=== PATIENT | male | born 1945 | race Caucasian/White ===

== ENCOUNTER → 2017-11-05 08:10 | Outpatient (CLI) | payer BC, SELFPAY ==
[2017-11-05 10:18] LABS: Hematocrit 46.1 % (40-54); Mean Corp Hgb Conc 34.7 g/gl (32-36); Mean Corpuscular Hgb 31.4 pg (27.0-32.0); Mean Corpuscular Volume 90.6 fL (80-94); Mean Platelet Vol. 10.8 fl (6.2-12.0); Platelet Count 236 K/mm3 (150-450); RBC Distribution Width CV 12.2 % (11.6-14.6); RBC Distribution Width SD 39.8 fl (35.1-43.9); Red Blood Count 5.09 M/mm3 (4.6-6.2); White Blood Count 6.1 K/mm3 (4.4-11.0)
[2017-11-05 10:20] LABS: Scan Indicated on CBC? Y/N NO
[2017-11-05 10:34] LABS: Anion Gap 5 (5-15); BUN 23 mg/dL (7-18); BUN/Creat Ratio 17.3 RATIO (10-20); Calcium,Total 8.9 mg/dL (8.5-10.1); Chloride 106 mmol/L (98-107); Cholesterol 188 mg/dL (200); Creatinine, Serum 1.33 mg/dL (0.70-1.30); EST Glomerular Filtration Rate 56 mL/min (>60); Est Glom Filt Rate - Afr Amer 68 mL/min (>60); Glucose 82 mg/dL (74-106); High Density Lipoprotein 51 mg/dL; PSA,Total- Diagnostic 0.83 ng/mL (0.0-4.0); Sodium Level 140 mmol/L (136-145); Triglycerides 140 mg/dL; Very Low Density Lipoprotein 28 mg/dL (5-40)
== END ==
PROVIDERS: Family Provider Family Medicine; PCP Family Medicine; Visit Provider Family Medicine
DX: I10 Essential (primary) hypertension (principal); Z12.5 Encounter for screening for malignant neoplasm of prostate; E78.5 Hyperlipidemia, unspecified
CPT/HCPCS: 36415; 80048; 80061; 84153; 85027

== ENCOUNTER → 2018-11-20 08:21 | Outpatient (CLI) | payer BC, SELFPAY ==
[2016-03-23 00:33] VITALS: BMI 24.1
[2018-11-20 10:12] LABS: Absolute Lymphocyte Count 1.83 X10^3/ul (0.83-4.51); Absolute Neutrophil Count 2.9 X10^3/uL (2.0-7.7); Basophil# 0.04 X10^3/uL; Basophil% 0.7 % (0-1); Eosinophil# 0.41 X10^3/uL; Eosinophils% 6.9 % (0-5); Hemoglobin 15.4 g/dl (13.0-16.5); Lymphocyte # 1.83 X10^3/ul (4.0); Lymphocyte % 30.7 % (19-41); Mean Corp Hgb Conc 34.2 g/gl (32-36); Mean Corpuscular Hgb 30.9 pg (27.0-32.0); Mean Corpuscular Volume 90.2 fL (80-94); Mean Platelet Vol. 10.6 fl (6.2-12.0); Monocyte% 13.4 % (0-10); Neutrophil # 2.88 X10^3/uL (2.7-7.7); Neutrophil % 48.1 % (47-70); Platelet Count 229 K/mm3 (150-450); RBC Distribution Width CV 12.1 % (11.6-14.6); RBC Distribution Width SD 39.4 fl (35.1-43.9); Red Blood Count 4.99 M/mm3 (4.6-6.2)
[2018-11-20 10:14] LABS: POSITIVE COUNT NO; POSITIVE DIFFERENTIAL NO; POSITIVE MORPHOLOGY NO
[2018-11-20 10:38] LABS: Anion Gap 10 (5-15); BUN 26 mg/dL (7-18); BUN/Creat Ratio 20.8 RATIO (10-20); Calcium,Total 9.3 mg/dL (8.5-10.1); Chloride 105 mmol/L (98-107); Cholesterol 187 mg/dL (200); Creatinine, Serum 1.25 mg/dL (0.70-1.30); EST Glomerular Filtration Rate 60 mL/min (>60); Est Glom Filt Rate - Afr Amer 73 mL/min (>60); Glucose 86 mg/dL (74-106); High Density Lipoprotein 54 mg/dL; PSA,Total - Annual Screen 0.74 ng/mL (0.00-4.00); Potassium 4.2 mmol/L (3.5-5.1); Sodium Level 141 mmol/L (136-145); Triglycerides 196 mg/dL; Very Low Density Lipoprotein 39 mg/dL (5-40)
[2018-11-21 11:37] LABS: Carcinoembryonic Antigen 1.7 ng/mL (0.0-4.7)
== END ==
PROVIDERS: Family Provider Family Medicine; PCP Family Medicine; Referring Provider Family Medicine; Visit Provider Family Medicine
DX: E78.5 Hyperlipidemia, unspecified (principal); R20.2 Paresthesia of skin; C20 Malignant neoplasm of rectum; Z12.5 Encounter for screening for malignant neoplasm of prostate
CPT/HCPCS: 36415; 80048; 80061; 82378; 84153; 85025; G0103

== ENCOUNTER → 2018-11-26 09:52 | Outpatient (CLI) | payer BC, SELFPAY ==
--- NOTE | 2018-11-26 09:54 | CDU_ITS ---
Reason For Study: Arm paresthesia Rt. Velocities/BP Lt. Velocities/BP Prox CCA 98.2/17.3 cm/sec. Prox CCA 94.9/17.6 cm/sec. Mid CCA 93/17.3 cm/sec. Mid CCA 81.4/16.3 cm/sec. Dist CCA 65.6/14.7 cm/sec. Dist CCA 65.5/16.3 cm/sec. Prox ICA 50.9/14.6 cm/sec. Prox ICA 69.1/18.8 cm/sec. Mid ICA 59.7/17.9 cm/sec. Mid ICA 109.7/36 cm/sec. Dist ICA 104.8/34.8 cm/sec. Dist ICA 96.2/26.2 cm/sec. Rt. ICA/CCA = 1.1. Lt. ICA/CCA = 1.3. Prox ECA 71.7/10.2 cm/sec. Prox ECA 71.6/7.7 cm/sec. Rt. Vert. 52/16.8 cm/sec. Lt. Vert. 45.6/10.7 cm/sec. Right Extracranial There is homogeneous, smooth atherosclerotic plaque noted in the right common carotid artery. There is heterogeneous, irregular atherosclerotic plaque noted in the right internal carotid artery. There is intimal thickening but no significant atherosclerotic plaque noted in the right external carotid artery. Antegrade flow is noted in the right vertebral artery. Left Extracranial There is homogeneous, smooth atherosclerotic plaque noted in the left common carotid artery. There is homogeneous, smooth atherosclerotic plaque noted in the left internal carotid artery. There is homogeneous, smooth atherosclerotic plaque noted in the left external carotid artery. Antegrade flow is noted in the left vertebral artery. Procedure Carotid Duplex 61863. Exam performed in department. Interpretation Summary Mild (<50%) stenosis right extracranial internal carotid. Mild (<50%) stenosis left extracranial internal carotid. Flow within the vertebral arteries is antegrade bilaterally. Ordering Physician: Ron Choi Referring Physician: Ron Choi Performed By: Kim Krishna RVT
== END ==
PROVIDERS: Family Provider Family Medicine; PCP Family Medicine; Referring Provider Family Medicine; Visit Provider Family Medicine
DX: R20.2 Paresthesia of skin (principal)
CPT/HCPCS: 93880

== ENCOUNTER → 2018-12-29 07:15 | Outpatient (CLI) | payer BC, SELFPAY ==
--- NOTE | 2018-12-29 07:32 | MRI_ITS ---
STUDY: MRI BRAIN WITH AND WITHOUT CONTRAST REASON FOR EXAM: Male, 73 years old. Right arm paresthesia TECHNIQUE: Standardized multiplanar fat and water weighted pulse sequences were obtained. 15 IV Dotarem was administered for the contrast portion of the examination. COMPARISON: None. FINDINGS: Normal size of the ventricles and extra-axial spaces for the patient's age. Normal white matter tracts of the supratentorial brain. There is no evidence for recent intracranial ischemia or other cause of cytotoxic edema on diffusion weighted imaging (DWI). Normal T2* images of the brain without demonstrated susceptibility artifact. There is no demonstrated hemosiderin stain. Normal bilateral basal ganglia. Normal thalami. There is no extra-axial fluid accumulation. Normal flow voids within the major intracranial circulation suggesting patency by spin echo criteria. Normal venous enhancement. There is no enhancing intra-axial or extra-axial abnormality. Normal sella turcica, pituitary gland, infundibular stalk, optic chiasm and hypothalamus. Normal tectal plate and pineal gland. Normal midbrain, katty and medulla. Normal cerebellum. Normal basal cisterns. Normal bilateral temporal bones. Normal bilateral internal auditory canals. No demonstrated orbital abnormality, within the constraints of a routine brain study. Normal visualized paranasal sinuses. Normal calvarium and skull base. Normal visualized soft tissue structures. Normal visualized upper cervical spine. MRI/Brain W/WO Contrast IMPRESSION: Normal unenhanced and enhanced MRI of the brain. Electronically Signed: Sharee Lalitha, at 11:47 EDT Tel , Service support ,
== END ==
PROVIDERS: Family Provider Family Medicine; PCP Family Medicine; Referring Provider Family Medicine; Visit Provider Family Medicine
DX: R20.2 Paresthesia of skin (principal)
CPT/HCPCS: 70553; A9575

== ENCOUNTER → 2019-10-27 10:23 | Outpatient (CLI) | payer BC, SELFPAY ==
[2016-03-23 00:33] VITALS: BMI 24.1
[2019-10-27 12:51] LABS: ALB/GLOB Ratio 1.1 RATIO (0.9-2.4); AST(SGOT) 28 U/L (15-37); Alanine Aminotransfer ALT/SGPT 40 U/L (16-61); Albumin, Serum 4.2 g/dL (3.2-5.0); Alkaline Phosphatase 65 U/L (45-117); Anion Gap 6 (5-15); BUN 25 mg/dL (7-18); Calcium,Total 9.5 mg/dL (8.5-10.1); Chloride 104 mmol/L (98-107); Cholesterol 221 mg/dL (200); Creatinine, Serum 1.39 mg/dL (0.70-1.30); EST Glomerular Filtration Rate 53 mL/min (>60); Est Glom Filt Rate - Afr Amer 64 mL/min (>60); Globulin 3.9 g/dL (2.2-4.2); Glucose 92 mg/dL (74-106); High Density Lipoprotein 54 mg/dL; Protein, Total 8.1 g/dL (6.4-8.2); Sodium Level 138 mmol/L (136-145); Triglycerides 199 mg/dL; Uric Acid 8.9 mg/dL (3.5-7.2); Very Low Density Lipoprotein 40 mg/dL (5-40)
[2019-10-28 09:20] LABS: Carcinoembryonic Antigen 1.4 ng/mL (0.0-4.7)
== END ==
PROVIDERS: PCP Family Medicine; Referring Provider Family Medicine; Visit Provider Family Medicine
DX: C20 Malignant neoplasm of rectum (principal); I10 Essential (primary) hypertension; M25.50 Pain in unspecified joint
CPT/HCPCS: 36415; 80053; 80061; 82378; 84550

== ENCOUNTER → 2020-05-02 08:25 | Outpatient (CLI) | payer BC, SELFPAY ==
[2016-03-23 00:33] VITALS: BMI 24.1
[2020-05-02 10:38] LABS: Anion Gap 4 (5-15); BUN 24 mg/dL (7-18); BUN/Creat Ratio 17.8 RATIO (10-20); Calcium,Total 9.5 mg/dL (8.5-10.1); Chloride 105 mmol/L (98-107); Cholesterol 185 mg/dL (200); Creatinine, Serum 1.35 mg/dL (0.70-1.30); EST Glomerular Filtration Rate 55 mL/min (>60); Est Glom Filt Rate - Afr Amer 66 mL/min (>60); Glucose 87 mg/dL (74-106); High Density Lipoprotein 47 mg/dL; Potassium 4.1 mmol/L (3.5-5.1); Sodium Level 139 mmol/L (136-145); Triglycerides 249 mg/dL; Very Low Density Lipoprotein 50 mg/dL (5-40)
== END ==
PROVIDERS: PCP Family Medicine; Referring Provider Family Medicine; Visit Provider Family Medicine
DX: I10 Essential (primary) hypertension (principal)
CPT/HCPCS: 36415; 80048; 80061

== ENCOUNTER → 2020-10-26 09:49 | Outpatient (CLI) | payer MEDICARE, OTHER, SELFPAY ==
[2016-03-23 00:33] VITALS: BMI 24.1
[2020-10-26 12:34] LABS: Anion Gap 5 (5-15); BUN 29 mg/dL (7-18); BUN/Creat Ratio 21.5 RATIO (10-20); Calcium,Total 9.5 mg/dL (8.5-10.1); Chloride 105 mmol/L (98-107); Cholesterol 202 mg/dL (200); Creatinine, Serum 1.35 mg/dL (0.70-1.30); EST Glomerular Filtration Rate 55 mL/min (>60); Est Glom Filt Rate - Afr Amer 66 mL/min (>60); Glucose 101 mg/dL (74-106); High Density Lipoprotein 51 mg/dL; Potassium 4.1 mmol/L (3.5-5.1); Sodium Level 140 mmol/L (136-145); Triglycerides 327 mg/dL; Very Low Density Lipoprotein 65 mg/dL (5-40)
== END ==
PROVIDERS: PCP Family Medicine; Referring Provider Family Medicine; Visit Provider Family Medicine
DX: I10 Essential (primary) hypertension (principal)
CPT/HCPCS: 36415; 80048; 80061

== ENCOUNTER → 2020-10-30 13:54 | Outpatient (CLI) | payer MEDICARE, OTHER, SELFPAY ==
--- NOTE | 2020-10-30 13:56 | ECHOD_ITS ---
Reason For Study: Murmur Procedure This was a 2D Doppler, Color Flow transthoracic echocardiogram. Exam performed in department. Left Ventricle Normal LV size. Left ventricular systolic function is normal. The estimated ejection fraction is 60 %. Stage 1 diastolic dysfunction. No regional wall motion abnormalities noted. Right Ventricle Normal RV size. Normal systolic function. Atria Normal left atrium. Normal right atrium. Patent foramen ovale. Tricuspid Valve Normal tricuspid valve. Mild tricuspid valve insufficiency. Pulmonary artery systolic pressure is 26 mmHg. Aortic Valve Trisinus/trileaflet aortic valve. Mild focal aortic valve calcification. Peak aortic valve gradient 24 mmHg. Mean aortic valve gradient 14 mmHg. Mild aortic stenosis. Pulmonic Valve Normal pulmonic valve. Great Vessels Normal aortic root. The pulmonary artery is normal size. Pericardium/Pleural No pericardial effusion. Medication Performed a rapid injection of agitated mix of 9 cc saline and 1cc air to assess for atrial septal defect. MMode/2D Measurements & Calculations LVIDd: 4.9 cm IVSd: 1.1 cm LVOT diam: 2.1 cm LVIDs: 3.4 cm LVPWd: 1.0 cm LVOT area: 3.4 cm2 RVDd: 3.3 cm FS: 30.8 % Ao root diam: 3.2 cm LAV(MOD-bp): 37.2 ml LVAd ap4: 27.3 cm2 LAV(MOD-bp) Indexed: 18.5 ml/m2 LVLd ap4: 7.9 cm LAV(MOD-sp2): 44.7 ml EDV(MOD-sp4): 77.3 ml LAV(MOD-sp4): 29.7 ml EDV(sp4-el): 80.2 ml LVAs ap4: 15.4 cm2 LVLs ap4: 6.6 cm ESV(MOD-sp4): 30.1 ml ESV(sp4-el): 30.5 ml EF(MOD-sp4): 61.0 % EF(sp4-el): 61.9 % SV(MOD-sp4): 47.2 ml SV(sp4-el): 49.7 ml LA A4 area: 13.8 cm2 LA dimension(2D): 3.3 cm RA A4 area: 17.2 cm2 Doppler Measurements & Calculations MV E max shree: 45.3 cm/sec Lat Peak E' Shree: 7.8 cm/sec Med Peak E' Shree: 6.7 cm/sec MV A max shree: 88.3 cm/sec E/E' lat: 5.8 E/E' med: 6.7 MV E/A: 0.51 Ao V2 max: 245.9 cm/sec LV V1 max: 117.0 cm/sec SV(LVOT): 74.7 ml Ao max P.2 mmHg LV V1 max P.5 mmHg Ao V2 mean: 176.5 cm/sec LV V1 mean P.8 mmHg Ao mean P.7 mmHg LV V1 mean: 79.2 cm/sec Ao V2 VTI: 48.4 cm LV V1 VTI: 22.2 cm MARGARITA(I,D): 1.5 cm2 MARGARITA(V,D): 1.6 cm2 PA V2 max: 122.3 cm/sec TR max shree: 239.3 cm/sec TR max P.9 mmHg ECHO/Echo Complete Interpretation Summary Normal LV size. Left ventricular systolic function is normal. The estimated ejection fraction is 60 %. Stage 1 diastolic dysfunction. Patent foramen ovale. Ordering Physician: Carmine Thomas Referring Physician: Carmine Thomas Performed By: Tata Alegre, DOMONIQUE, RVT
== END ==
PROVIDERS: PCP Family Medicine; Referring Provider Family Medicine; Visit Provider Family Medicine
DX: R01.1 Cardiac murmur, unspecified (principal)
CPT/HCPCS: 93306; A4216

== ENCOUNTER → 2021-04-24 10:19 | Outpatient (CLI) | payer MEDICARE, OTHER, SELFPAY ==
[2021-04-24 13:28] LABS: Anion Gap 6 (5-15); BUN 25 mg/dL (7-18); BUN/Creat Ratio 18.9 RATIO (10-20); Calcium,Total 9.7 mg/dL (8.5-10.1); Chloride 103 mmol/L (98-107); Cholesterol 195 mg/dL (200); Creatinine, Serum 1.32 mg/dL (0.70-1.30); EST Glomerular Filtration Rate 56 mL/min (>60); Est Glom Filt Rate - Afr Amer 68 mL/min (>60); Glucose 94 mg/dL (74-106); High Density Lipoprotein 48 mg/dL; PSA,Total - Annual Screen 0.91 ng/mL (0.00-4.00); Potassium 4.4 mmol/L (3.5-5.1); Sodium Level 137 mmol/L (136-145); Triglycerides 214 mg/dL; Very Low Density Lipoprotein 43 mg/dL (5-40)
[2021-04-25 10:02] LABS: Carcinoembryonic Antigen 1.7 ng/mL (0.0-4.7)
== END ==
PROVIDERS: PCP Family Medicine; Referring Provider Family Medicine; Visit Provider Family Medicine
DX: E78.5 Hyperlipidemia, unspecified (principal); Z12.5 Encounter for screening for malignant neoplasm of prostate; I10 Essential (primary) hypertension; C20 Malignant neoplasm of rectum
CPT/HCPCS: 36415; 80048; 80061; 82378; 84153; G0103

== ENCOUNTER → 2022-10-17 | Outpatient (CLI) | payer MEDICARE, OTHER, SELFPAY ==
[2022-10-17 10:52] LABS: ALB/GLOB Ratio 1.2 RATIO (0.9-2.4); AST(SGOT) 22 U/L (15-37); Alanine Aminotransfer ALT/SGPT 31 U/L (16-61); Albumin, Serum 3.7 g/dL (3.2-5.0); Alkaline Phosphatase 85 U/L (45-117); Anion Gap 5 (5-15); BUN 23 mg/dL (7-18); BUN/Creat Ratio 16.3 RATIO (10-20); Calcium,Total 9.4 mg/dL (8.5-10.1); Chloride 104 mmol/L (98-107); Cholesterol 204 mg/dL (200); Creatinine, Serum 1.41 mg/dL (0.70-1.30); EST Glomerular Filtration Rate 52 mL/min (>60); Est Glom Filt Rate - Afr Amer 63 mL/min (>60); Globulin 3.1 g/dL (2.2-4.2); Glucose 92 mg/dL (74-106); High Density Lipoprotein 51 mg/dL; Potassium 4.5 mmol/L (3.5-5.1); Protein, Total 6.8 g/dL (6.4-8.2); Sodium Level 137 mmol/L (136-145); Triglycerides 341 mg/dL; Very Low Density Lipoprotein 68 mg/dL (5-40)
== END | disposition home or self-care (01) ==
LOC: MFPLAB 09:29
PROVIDERS: PCP Family Medicine; Visit Provider Family Medicine
DX: I10 Essential (primary) hypertension (principal); E78.5 Hyperlipidemia, unspecified; Z12.5 Encounter for screening for malignant neoplasm of prostate
CPT/HCPCS: 36415; 80053; 80061; 84153; G0103

== ENCOUNTER → 2023-04-24 | Outpatient (CLI) | payer MEDICARE, OTHER, SELFPAY ==
[2023-04-24 18:29] LABS: ALB/GLOB Ratio 1.1 RATIO (0.9-2.4); AST(SGOT) 21 U/L (15-37); Alanine Aminotransfer ALT/SGPT 29 U/L (16-61); Albumin, Serum 3.7 g/dL (3.2-5.0); Alkaline Phosphatase 75 U/L (45-117); Anion Gap 8 (5-15); BUN 31 mg/dL (7-18); BUN/Creat Ratio 22.8 RATIO (10-20); Calcium,Total 9.4 mg/dL (8.5-10.1); Chloride 107 mmol/L (98-107); Cholesterol 219 mg/dL (200); Creatinine, Serum 1.36 mg/dL (0.70-1.30); EST Glomerular Filtration Rate 54 mL/min (>60); Est Glom Filt Rate - Afr Amer 65 mL/min (>60); Globulin 3.4 g/dL (2.2-4.2); Glucose 95 mg/dL (74-106); High Density Lipoprotein 50 mg/dL; Protein, Total 7.1 g/dL (6.4-8.2); Sodium Level 141 mmol/L (136-145); Triglycerides 445 mg/dL
== END | disposition home or self-care (01) ==
LOC: MFPLAB 14:06
PROVIDERS: PCP Family Medicine; Visit Provider Family Medicine
DX: I10 Essential (primary) hypertension (principal)
CPT/HCPCS: 36415; 80053; 80061

== ENCOUNTER → 2023-10-23 | Outpatient (CLI) | payer MEDICARE, OTHER, SELFPAY ==
[2023-10-23 10:47] LABS: ALB/GLOB Ratio 1.1 RATIO (0.9-2.4); AST(SGOT) 21 U/L (15-37); Alanine Aminotransfer ALT/SGPT 26 U/L (16-61); Albumin, Serum 3.7 g/dL (3.2-5.0); Alkaline Phosphatase 68 U/L (45-117); Anion Gap 3 (5-15); BUN 26 mg/dL (7-18); BUN/Creat Ratio 19.7 RATIO (10-20); Chloride 108 mmol/L (98-107); Cholesterol 201 mg/dL (200); Creatinine, Serum 1.32 mg/dL (0.70-1.30); EST Glomerular Filtration Rate 56 mL/min (>60); Est Glom Filt Rate - Afr Amer 68 mL/min (>60); Globulin 3.4 g/dL (2.2-4.2); Glucose 98 mg/dL (74-106); High Density Lipoprotein 52 mg/dL; Potassium 4.3 mmol/L (3.5-5.1); Protein, Total 7.1 g/dL (6.4-8.2); Sodium Level 139 mmol/L (136-145); Triglycerides 246 mg/dL; Uric Acid 5.1 mg/dL (3.5-7.2); Very Low Density Lipoprotein 49 mg/dL (5-40)
== END | disposition home or self-care (01) ==
LOC: MFPLAB 09:16
PROVIDERS: PCP Family Medicine; Visit Provider Family Medicine
DX: M10.9 Gout, unspecified (principal); E78.5 Hyperlipidemia, unspecified
CPT/HCPCS: 36415; 80053; 80061; 84550

== ENCOUNTER → 2023-12-02 | Outpatient (CLI) | payer MEDICARE, OTHER, SELFPAY ==
--- NOTE | 2023-12-02 09:51 | ECHOD_ITS ---
Reason For Study: MURMUR Procedure This was a 2D Doppler, Color Flow transthoracic echocardiogram. Exam performed in department. Left Ventricle Normal LV size. Left ventricular systolic function is normal. The left ventricular ejection fraction is 60 %. Stage 1 diastolic dysfunction. No regional wall motion abnormalities noted. Right Ventricle Normal RV size. Normal systolic function. Atria Normal left atrium. Normal right atrium. Hypermobile atrial septum. Mitral Valve Normal mitral valve. Tricuspid Valve Normal tricuspid valve. Aortic Valve Trisinus/trileaflet aortic valve. Moderate focal aortic valve thickening. Mild aortic stenosis. Peak aortic valve gradient 25 mmHg. Mean aortic valve gradient 15 mmHg. Mild (1+) aortic valve insufficiency. Pulmonic Valve Normal pulmonic valve. Great Vessels Normal aortic root. The pulmonary artery is normal size. Normal inferior vena cava. Pericardium/Pleural No pericardial effusion. MMode/2D Measurements & Calculations LVIDd: 4.6 cm IVSd: 1.1 cm LVOT diam: 2.0 cm LVIDs: 3.0 cm LVPWd: 1.1 cm LVOT area: 3.2 cm2 RVDd: 3.9 cm FS: 35.1 % Ao root diam: 3.1 cm LAV(MOD-bp): 54.6 ml LVAd ap4: 30.9 cm2 LAV(MOD-bp) Indexed: 27.4 ml/m2 LVLd ap4: 8.2 cm LAV(MOD-sp2): 56.4 ml EDV(MOD-sp4): 94.3 ml LAV(MOD-sp4): 50.2 ml EDV(sp4-el): 98.8 ml LVAs ap4: 17.7 cm2 LVLs ap4: 6.7 cm ESV(MOD-sp4): 39.1 ml ESV(sp4-el): 40.0 ml EF(MOD-sp4): 58.6 % EF(sp4-el): 59.5 % LVAd ap2: 28.8 cm2 SV(MOD-sp4): 55.3 ml SV(MOD-sp2): 52.5 ml LVLd ap2: 8.1 cm EDV(MOD-sp2): 82.6 ml EDV(sp2-el): 86.9 ml LVAs ap2: 15.8 cm2 LVLs ap2: 6.9 cm ESV(MOD-sp2): 30.1 ml ESV(sp2-el): 30.9 ml EF(MOD-sp2): 63.6 % SV(sp4-el): 58.8 ml LA dimension(2D): 3.6 cm LA A4 area: 19.2 cm2 RA A4 area: 22.8 cm2 TAPSE: 2.2 cm Time Measurements MV dec time: 0.31 sec Doppler Measurements & Calculations MV E max shree: 55.3 cm/sec Lat Peak E' Shree: 9.0 cm/sec Med Peak E' Shree: 8.0 cm/sec MV A max shree: 90.9 cm/sec E/E' lat: 6.2 E/E' med: 7.0 MV E/A: 0.61 Ao V2 max: 249.5 cm/sec AI max shree: 342.4 cm/sec MV dec slope: 178.3 cm/sec2 Ao max P.0 mmHg AI max P.9 mmHg Ao V2 mean: 180.2 cm/sec Ao mean P.7 mmHg AI dec slope: 142.0 cm/sec2 Ao V2 VTI: 53.4 cm AI P1/2t: 706.1 msec AV (velocity ratio): 0.46 MARGARITA(I,D): 1.5 cm2 MARGARITA(V,D): 1.5 cm2 LV V1 max: 114.3 cm/sec SV(LVOT): 79.4 ml PA V2 max: 137.2 cm/sec LV V1 max P.2 mmHg PA max PG (full): 4.8 mmHg LV V1 mean P.0 mmHg LV V1 mean: 82.4 cm/sec LV V1 VTI: 24.5 cm PI end-d shree: 84.1 cm/sec ECHO/Echo Complete Interpretation Summary Hypermobile atrial septum. Normal LV size. Left ventricular systolic function is normal. The left ventricular ejection fraction is 60 %. Mean aortic valve gradient 15 mmHg. Mild (1+) aortic valve insufficiency. Stage 1 diastolic dysfunction. The global longitudinal strain is normal. The global longitudinal strain = -20 % (normal). Ordering Physician: Carmine Thomas Referring Physician: Carmine Thomas Performed By: Xochilt rCaig RDCS
== END | disposition home or self-care (01) ==
LOC: CVS 09:48
PROVIDERS: PCP Family Medicine; Referring Provider Family Medicine; Visit Provider Family Medicine
DX: R01.1 Cardiac murmur, unspecified (principal)
CPT/HCPCS: 93306

== ENCOUNTER → 2024-04-19 | Outpatient (CLI) | payer MEDICARE, OTHER, SELFPAY ==
[2024-04-19 10:32] LABS: ALB/GLOB Ratio 1.1 RATIO (0.9-2.4); AST(SGOT) 14 U/L (15-37); Alanine Aminotransfer ALT/SGPT 24 U/L (16-61); Albumin, Serum 3.7 g/dL (3.2-5.0); Alkaline Phosphatase 78 U/L (45-117); Anion Gap 5 (5-15); BUN 27 mg/dL (7-18); BUN/Creat Ratio 20.9 RATIO (10-20); Calcium,Total 9.7 mg/dL (8.5-10.1); Chloride 108 mmol/L (98-107); Cholesterol 197 mg/dL (200); Creatinine, Serum 1.29 mg/dL (0.70-1.30); EST Glomerular Filtration Rate 57 mL/min (>60); Est Glom Filt Rate - Afr Amer 69 mL/min (>60); Globulin 3.5 g/dL (2.2-4.2); Glucose 94 mg/dL (74-106); High Density Lipoprotein 56 mg/dL; PSA,Total - Annual Screen 1.28 ng/mL (0.00-4.00); Potassium 4.3 mmol/L (3.5-5.1); Protein, Total 7.2 g/dL (6.4-8.2); Sodium Level 139 mmol/L (136-145); Triglycerides 198 mg/dL; Very Low Density Lipoprotein 40 mg/dL (5-40)
== END | disposition home or self-care (01) ==
LOC: MFPLAB 09:13
PROVIDERS: PCP Family Medicine; Visit Provider Family Medicine
DX: Z12.5 Encounter for screening for malignant neoplasm of prostate (principal); I10 Essential (primary) hypertension
CPT/HCPCS: 36415; 80053; 80061; 84153; G0103

== ENCOUNTER → 2024-10-20 | Outpatient (CLI) | payer MEDICARE, OTHER, SELFPAY ==
[2024-10-20 11:15] LABS: ALB/GLOB Ratio 1.6 RATIO (0.9-2.4); AST(SGOT) 24 U/L (<=37); Alanine Aminotransfer ALT/SGPT 17 U/L (<=46); Albumin, Serum 4.4 g/dL (3.4-4.8); Alkaline Phosphatase 68 U/L (40-129); Anion Gap 12 (5-15); BUN 32 mg/dL (4-19); BUN/Creat Ratio 22.7 RATIO (10-20); Calcium,Total 10.2 mg/dL (7.6-11.0); Carbon Dioxide 22.8 mmol/L (21.0-32.0); Chloride 103 mmol/L (98-108); Cholesterol 205 mg/dL (<=200); Creatinine, Serum 1.39 mg/dL (0.70-1.20); EST Glomerular Filtration Rate 52 (>60); Globulin 2.7 g/dL (2.2-4.2); Glucose 90 mg/dL (70-99); High Density Lipoprotein 59 mg/dL; Low Density Lipoprotein Calc. 105 mg/dL; Potassium 4.4 mmol/L (3.3-5.1); Protein, Total 7.1 g/dL (5.9-8.4); Sodium Level 138 mmol/L (133-145); Total Bilirubin 0.71 mg/dL (0.00-1.30); Triglycerides 208 mg/dL; Very Low Density Lipoprotein 42 mg/dL (5-40); cholesterol:hdl ratio screen 3.49
== END | disposition home or self-care (01) ==
LOC: MFPLAB 08:47
PROVIDERS: PCP Family Medicine; Referring Provider Family Medicine; Visit Provider Family Medicine
DX: I10 Essential (primary) hypertension (principal); E78.5 Hyperlipidemia, unspecified
CPT/HCPCS: 36415; 80053; 80061

== ENCOUNTER → 2025-04-27 | Outpatient (CLI) | payer MEDICARE, OTHER, SELFPAY ==
--- OUTSIDE RECORDS SUMMARY | 2025-04-27 08:48 | XMS RPT_ITS | CCD ---
Author Organization [facility] Inform ion [facility] Care Team Providers Care Instrumentation Technician Name Role Phone ANOTNIO ESCALANTE Attending Unavailable Ron Choi Referring Unavailable Ron Choi Primary Care Unavailable Antonio Escalante Unavailable Unavailable Vince WHATLEY, Carmine Joya Primary Care Provider [phone] Vince WHATLEY, Carmine Joya Primary Care Provider ISABEL LOU Attending Unavailable VINCE, CARMINE JOYA Primary Care Unavailable TRACEY LEE Attending Unavailable ISABEL LOU Referring Unavailable VINCE, CARMINE JOYA Primary Care Unavailable Vince WHATLEY, Dr. Lou Primary Care Provider Vince WHATLEY, Dr. Lou Attending Provider [phone] Vince WHATLEY, Dr. Lou Referring Provider Carmine Thomas Referring Unavailable Vince, Carmine Primary Care Unavailable Sis MULE OPERATOR, Ron Gonzales Attending Unavailable Thomas, Carmine Attending Unavailable Vince, Carmine Primary Care Unavailable Vince, Carmine Attending Unavailable Vince, Carmine Referring Unavailable Vince, Carmine Primary Care Unavailable Vince, Carmine Primary Care Unavailable Vince, Carmine Referring Unavailable Antonino Gonzales Attending Unavailable Medications Current Medications Medication Drug Class(es) Dates Sig (Normalized) Sig (Original) allopurinol 100 mg oral tablet (3 sources) Xanthine Oxidase Inhibitor Start: 11-07-2020 take 2 tablets by mouth once daily Allopurinol 100 mg tablet Active 200 mg PO DAILY November 07, 2020 12:00am take 1 tablet by mouth once maureen y allopurinol (Zyloprim) 100 mg tablet Take 1 tablet (100 mg) by mouth once daily. 0 Active aspirin 81 mg delayed release oral tablet (1 source) Platelet Aggregation Inhibitor, Nonsteroidal Anti-inflammatory Drug Start: 11-14-2020 Aspirin (Adult Lo w Dose Aspirin) 81 mg tablet,delayed release (DR/EC) Active 81 mg PO daily 90 November 14, 2020 12:00am fluorouracil 50 mg/ml topical cream (2 sources) Nucleoside Metabolic Inhibitor Start: 05-13-2018 End: 03-20-2023 fluorouracil (Efudex) 5 % cream 1 Application. 0 05/13/2018 03/20/2023 Discontinued (Therapy completed) Start: 05-13-2018 [id number] Medicat ion fluorouracil 5 % topical cream fluorouracil 5 % topical cream 5 % 1 Application topically twice a day 05/13/2018 Prior History No Longer Active hydroCHLOROthiazide 12.5 mg / lisinopril 20 mg oral tablet (1 source) Thiazide Diuretic, Angiotensin Converting Enzyme Inhibitor Start: 11-07-2020 Lisinopril-Hydrochlorothiazi de 20-12.5 mg tablet Active 1 {tbl} PO DAILY November 07, 2020 12:00am lisinopril 20 mg oral tablet (4 sources) Angiotensin Converting Enzyme Inhibitor Start: 03-23-2016 End: 11-07-2020 [id number] Medication lisinopril lisinopril 20 mg 04/15/2016 Active (Outside) triamcinolone acetonide 0.25 mg/ml topical cream (2 sources) Corticosteroid Start: 03-20-2023 triamcinolone (Kenalog) 0.02 5 % cream Indications: Actinic keratosis Apply to scalp after 2 week fluorouracil treatment 2x daily x 2wks 80 g 0 03/20/2023 Active Completed/Discontinued Medications Medication Drug Class(es) Dates Sig (Normalized) Sig (Original) omeprazole 20 mg delayed release oral capsule (1 source) Proton Pump Inhibitor Start: 03-23-2016 End: 11-07-2020 take 1 capsule by mouth once daily Omeprazole 20 MG capsule Discontinued 20 mg PO DAILY March 23, 2016 12:00am November 07, 2020 5:05pm Problems Active Problems Problem Classification Problem Date Documented Date Episodic/Chronic Cancer of colon (1 source) Malignant tumor of colon; Translations: [Malignant neoplasm of colon, unspecified] 11-13-2020 Chronic Cardiac and circulatory congenital anomalies (1 source) Patent foramen ovale; Translations: [Patent foramen ovale] 11-13-2020 Chronic Disorders of lipid metabolism (3 sources) Hypertriglyceridemia; Translations: [Pure hyperglyceridemia] Onset: 01-07-2024 1 Chronic Essential hypertension (2 sources) Essential hypertension; Translations: [Essential (primary) hypertension] Onset: 10-25-2024 11-07-2020 Chronic Heart valve disorders (2 sources) Aortic stenosis, non-rheumatic ; Translations: [Nonrheumatic aortic (valve) stenosis] Onset: 01-07-2024 11-13-2020 Chronic Other and unspecified benign neoplasm (2 sources) Melanocytic nevi of other parts of face Onset: 05-13-2018 Episodic Other and unspecified benign neoplasm (1 source) Melanocytic nevi of trunk Onset: 05-09-2021 Episodic Other and unspecified benign neoplasm (1 source) Melanocytic nevi of right upper limb, including shoulder Onset: 05-09-2021 Episodic Other and unspecified benign neoplasm (2 sources) Melanocytic nevi of left upper limb, including shoulder Onset: 05-09-2021 Episodic Other and unspecified benign neoplasm (1 source) Melanocytic nevi of right lower limb, including hip Onset: 05-09-2021 Episodic Other and unspecified benign neoplasm (1 source) Melanocytic nevi of left lower limb, including hip Onset: 05-09-2021 Episodic Other and unspecified benign neoplasm (1 source) Hemangioma of skin; Translations: [Hemangioma of skin and subcutaneous tissue] 03-20-2023 Episodic Other diseases of kidney and ureters (1 source) Abnormal renal function; Translations: [Disorder of kidney and ureter, unspecified] 12-15-2023 Episodic Other male genital disorders (1 source) Male erectile dysfunction, unspecified; Translations: [Erectile dysfunction] 12-15-2023 Chronic Other nervous system disorders (1 source) Guillain-Delavan syndrome; 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 Other non-epithelial cancer of skin (11 sources) Basal cell carcinoma of skin of nose; Translations: [Squamous cell carcinoma of skin of nose] Onset: 05-09-2021 03-17-2023 Episodic Other skin disorders (2 sources) Other melanin hyperpigmentation Onset: 04-15-2016 Episodic Other skin disorders (2 sources) Scar conditions and fibrosis of skin Onset: 07-05-2016 Episodic Other skin disorders (1 source) Skin tag; Translations: [Other hypertrophic disorders of the skin] 03-20-2023 Episodic Past or Other Problems Problem Classification Problem Date Documented Da te Episodic/Chronic Allergic reactions (3 sources) Solar degeneration; Translations: [Other skin changes due to chronic exposure to nonionizing radiation] Onset: 03-20-2023 03-20-2023 Episodic Cardiac dysrhythmias (2 sources) Intermittent palpitations; Translations: [Palpitations] Onset: 01-07-2024 11-14-2020 Episodic Heart valve disorders (2 sources) Heart murmur; Translations: [Cardiac murmur, unspecified] Onset: 01-07-2024 12-15-2023 Episodic Melanomas of skin (7 sources) Personal history of malignant melanoma of skin; Translations: [History of malignant melanoma of the skin] Onset: 05-09-2021 03-20-2023 Episodic Neoplasms of unspecified nature or uncertain behavior (13 sources) Neoplasm of uncertain behavior of skin; Translations: [Neoplasm of unspecified behavior of bone, soft tissue, and skin] Onset: 04-15-2016 03-20-2023 Episodic Open wounds of head; neck; and trunk (4 sources) Unspecified open wound of lip, subsequent encounter; Translations: [Open wound of lip] Onset: 07-05-2016 03-17-2023 Episodic Other and unspecified benign neoplasm (3 sources) Hemangioma of skin and subcutaneous tissue; Translations: [Hemangioma of skin and subcutaneous tissue] Onset: 05-09-2021 Episodic Other and unspecified benign neoplasm (2 sources) Melanocytic nevus of lower limb; Translations: [Melanocytic nevi of right lower limb, including hip] Onset: 05-09-2021 03-17-2023 Episodic Other and unspecified benign neoplasm (2 sources) Melanocytic nevus of left lower limb; Translations: [Melanocytic nevi of left lower limb, including hip] Onset: 05-09-2021 03-17-2023 Episodic Other and unspecified benign neoplasm (2 sources) Melanocytic nevus of right upper limb; Translations: [Melanocytic nevi of right upper limb, including shoulder] Onset: 05-09-2021 03-17-2023 Episodic Other and unspecified benign neoplasm (2 sources) Melanocytic nevus of left upper limb; Translations: [Melanocytic nevi of left upper limb, including shoulder] Onset: 05-09-2021 03-17-2023 Episodic Other and unspecified benign neoplasm (2 sources) Hemangioma of skin and subcutaneous tissue; Translations: [Hemangioma of skin and subcutaneous tissue] Onset: 05-09-2021 03-17-2023 Episodic Other and unspecified benign neoplasm (2 sources) Melanocytic nevus of face; Translations: [Melanocytic nevi of other parts of face] Onset: 05-09-2021 03-17-2023 Episodic Other and unspecified benign neoplasm (2 sources) Melanocytic nevus of trunk; Translations: [Melanocytic nevi of trunk] Onset: 05-09-2021 03-17-2023 Episodic Other screening for suspected conditions (not mental disorders or infectious disease) (2 sources) Encounter for screening for malignant neoplasm of skin; Translations: [Encounter for screening for malignant neoplasm of prostate] Onset: 05-09-2021 Episodic Other skin disorders (6 sources) Actinic keratosis; Translations: [Actinic keratosis] Onset: 04-15-2016 Episodic Other skin disorders (4 sources) Other seborrheic keratosis; Translations: [Other seborrheic keratosis] Onset: 05-13-2018 Episodic Other skin disorders (3 sources) Actinic keratosis; Translations: [Actinic keratosis] Onset: 05-09-2021 03-20-2023 Episodic Other skin disorders (3 sources) Seborrheic keratosis; Translations: [Other seborrheic keratosis] Onset: 05-09-2021 03-20-2023 Episodic Other skin disorders (2 sources) Disorder of pigmentation; Translations: [Other melanin hyperpigmentation] Onset: 05-09-2021 03-17-2023 Episodic Other skin disorders (2 sources) Scar conditions and fibrosis of skin; Translations: [Scar conditions and fibrosis of skin] Onset: 05-09-2021 03-17-2023 Episodic Other skin disorders (2 sources) Other hypertrophic disorders of the skin; Translations: [Other hypertrophic disorders of the skin] Onset: 03-20-2023 Episodic Results Test Name Value Interpretation Reference Range Facility Anion gap in Serum or Plasma Ordered By: Carmine Thomas on 10-20-2024 Anion gap [Moles/Vol] 12 mmol/L 5-15 [facility] BUN/creatinine ratioOrdered By: Carmine Thomas on 10-20-2024 Urea nitrogen/Creatinine [Mass ratio] 22.7 mg/mg High 10-20 [facility] Bilirubin, totalOrdered By: Carmine Thomas on 10-20-2024 Bilirubin [Mass/Vol] 0.71 mg/dL 0.00-1.30 [facility] Calculated very low density lipoprotein (VLDL) cholesterol measurementOrdered By: Carmine Thomas on 10-20-2024 Calculated very low density lipoprotein (VLDL) cholesterol measurement 42 mg/dL High 5-40 [facility] Carbon dioxide, total [Moles /volume] in Central venous bloodOrdered By: Carmine Thomas on 10-20-2024 CO2 [Moles/Vol] 22.8 mmol/L 21.0-32.0 [facility] Chloride assayOrdered By: Jose Thomas on 10-20-2024 Chloride [Moles/Vol] 103 mmol/L 98-108 [facility] Comprehensive Metabolic Prof ilon 10-20-2024 Albumin [Mass/Vol] 4.4 g/dL Normal 3.4-4.8 [facility] Comment on above: Performed By: #### L 500.4100, L500.4050 #### [facility] [address] [place], [address] Albumin/Globulin [Mass ratio] 1.6 {ratio} Normal 0.9-2.4 [facility] Comment on above: Performed By: #### L 500.4100, [id number] #### [facility] [address] [place], [address] ALK PHOS 68 U/L Normal 40-129 [facility] Comment on above: Performed By: #### L 500.4100, [id number] #### [facility] [address] [place], [address] ALT [Catalytic activity/Vol] 17 U/L Normal <=46 [facility] Comment on above: Performed By: #### L 500.4100, [id number] #### [facility] [address] [place], [address] AST [Catalytic activity/Vol] 24 U/L Normal <=37 [facility] Comment on above: Performed By: #### L 500.4100, [id number] #### [facility] [address] [place], [address] Bilirubin [Mass/Vol] 0.71 mg/dL Normal 0.00-1.30 [facility] Comment on above: Performed By: #### L 500.4100, [id number] #### [facility] [address] [place], [address] BUN/CRE 22.7 RATIO High 10-20 [facility] Comment on above: Performed By: #### L 500.4100, [id number] #### [facility] [address] [place], [address] Calcium [Mass/Vol] 10.2 mg/dL Normal 7.6-11.0 [facility] Comment on above: Performed By: #### L 500.4100, [id number] #### [facility] [address] [place], [address] Chloride [Moles/Vol] 103 mmol/L Normal 98-108 [facility] Comment on above: Performed By: #### L 500.4100, [id number] #### [facility] [address] [place], [address] CO2 [Moles/Vol] 22.8 mmol/L Normal 21.0-32.0 [facility] Comment on above: Performed By: #### L 500.4100, [id number] #### [facility] [address] [place], [address] Creatinine [Mass/Vol] 1.39 mg/dL High 0.70-1.20 [facility] Comment on above: Performed By: #### L 500.4100, [id number] #### [facility] [address] [place], [address] GAP 12 Normal 5-15 [facility] Comment on above: Performed By: #### L 500.4100, [id number] #### [facility] [address] [place], [address] GFR/1.73 sq M.predicted among non-blacks MDRD (S/P/Bld) [Vol rate/Area] 52 mL/min/{1.73_m2} Low >60 [facility] Comment on above: Result Comment: mL/m in/1.73m2 CKD-EPI Creatinine Equation (2020) Performed By: #### L 500.4100, [id number] #### [facility] [address] [place], [address] Globulin (S) [Mass/Vol] 2.7 g/dL Normal 2.2-4.2 [facility] Comment on above: Performed By: #### L 500.4100, [id number] #### [facility] [address] [place], [address] Glucose [Mass/Vol] 90 mg/dL Normal 70-99 [facility] Comment on above: Performed By: #### L 500.4100, [id number] #### [facility] [address] [place], [address] Potassium [Moles/Vol] 4.4 mmol/L Normal 3.3-5.1 [facility] Comment on above: Performed By: #### L 500.4100, [id number] #### [facility] [address] [place], [address] Sodium [Moles/Vol] 138 mmol/L Normal 133-145 [facility] Comment on above: Performed By: #### L 500.4100, [id number] #### [facility] [address] [place], [address] T PROT 7.1 g/dL Normal 5.9-8.4 [facility] Comment on above: Performed By: #### L 500.4100, [id number] #### [facility] [address] [place], [address] Urea nitrogen [Mass/Vol] 32 mg/dL High 4-19 [facility] Comment on above: Performed By: #### L 500.4100, [id number] #### [facility] [address] [place], [address] Glomerular filtration rate ( GFR) estimation/1.73 sq m using serum, plasma, or whole bOrdered By: Carmine Thomas on 10-20-2024 GFR/1.73 sq M.predicted among non-blacks MDRD (S/P/Bld) [Vol rate/Area] 52 mL/min/{1.73_m2} Low >60 [facility] Comment on above: mL/min/1.73m2 CKD-EP I Creatinine Equation (2020) LDL calc ser/plasOrdered By: Carmine Thomas on 10-20-2024 Cholesterol in LDL [Mass/Vol] 105 mg/dL [facility] Comment on above: Pcvxzukyyd=173-183 m g/dL & Higher Qopu=575 mg/dL or greater Laboratory - Chemistry and C hemistry - challengeOrdered By: Carmine Thomas on 10-20-2024 AST [Catalytic activity/Vol] 24 U/L <38 [facility] Lipid Profileon 10-20-2024 CHOL:HDL 3.49 Normal [facility] Comment on above: Performed By: #### L 500.4100, L500.4050 #### [facility] [address] [place], [address] Cholesterol [Mass/Vol] 205 mg/dL High <=200 [facility] Comment on above: Result Comment: Chol esterol level, Desirable <200 mg/dL Borderline high cholesterol 200-239 mg/dL High cholesterol >=240 mg/dL Recommendations of the NCEP Adult Treatment Panel for the following risk-cutoff thresholds for the [place] population. Performed By: #### L 500.4100, L500.4050 #### [facility] [address] [place], [address] Cholesterol in HDL [Mass/Vol] 59 mg/dL Normal [facility] Comment on above: Result Comment: [place] onal Cholesterol Education Program (NCEP) guidelines: <40 mg/dL: Low HDL-cholesterol (major risk factor for CHD) >= 60 mg/dL: High HDL-cholesterol (negative risk factor for CHD) HDL-cholesterol is affected by a number of factors, e.g. smoking, exercise, hormones, sex and age. Performed By: #### L 500.4100, [id number] #### [facility] [address] [place], [address] Cholesterol in LDL [Mass/Vol] 105 mg/dL Normal [facility] Comment on above: Result Comment: Bord spuxzs=832-984 mg/dL Higher Jhxz=374 mg/dL or greater Performed By: #### L 500.4100, [id number] #### [facility] [address] [place], [address] Cholesterol in VLDL [Mass/Vol] 42 mg/dL High 5-40 [facility] Comment on above: Performed By: #### L 500.4100, [id number] #### [facility] [address] [place], [address] Triglyceride [Mass/Vol] 208 mg/dL High [facility] Comment on above: Result Comment: The drugs N-Acetylcysteine and Metamizole may falsely depress this assay. Normal range: <150 mg/dL Borderline High: 150-199 mg/dL High: 200-499 mg/dL Very High: >500 mg/dL Performed By: #### L 500.4100, [id number] #### [facility] [address] [place], [address] Potassium measurement (mass/ volume)Ordered By: Carmine Thomas on 10-20-2024 Potassium (Unsp spec) [Mass/Vol] 4.4 mmol/L 3.3-5.1 [facility] Screening total cholesterol/ high density lipoprotein (HDL) cholesterol ratioOrdered By: Carmine Thomas on 10-20-2024 Cholesterol.total/Cho lesterol in HDL [Mass ratio] 3.49 {ratio} [facility] Serum creatinine measurement (mass/volume)Ordered By: Carmine Thomas on 10-20-2024 Creatinine [Mass/Vol] 1.39 mg/dL High 0.70-1.20 [facility] Serum globulin measurementOr dered By: Carmine Thomas on 10-20-2024 Globulin (S) [Mass/Vol] 2.7 g/dL 2.2-4.2 [facility] Serum glucose measurement (m ass/volume)Ordered By: Carmine Thomas on 10-20-2024 Glucose [Mass/Vol] 90 mg/dL 70-99 [facility] Serum or plasma alanine kelly otransferase (ALT) measurementOrdered By: Carmine Thomas on 10-20-2024 ALT [Catalytic activity/Vol] 17 U/L <47 [facility] Serum or plasma albumin olaf urement (mass/volume)Ordered By: Carmine Thomas on 10-20-2024 Albumin [Mass/Vol] 4.4 g/dL 3.4-4.8 [facility] Serum or plasma albumin/glob ulin mass ratioOrdered By: Carmine Thomas on 10-20-2024 Albumin/Globulin [Mass ratio] 1.6 {ratio} 0.9-2.4 [facility] Serum or plasma alkaline tereso sphatase measurementOrdered By: Carmine Thomas on 10-20-2024 ALP [Catalytic activity/Vol] 68 U/L 40-129 [facility] Serum or plasma calcium olaf urement (mass/volume)Ordered By: Carmine Thomas on 10-20-2024 Calcium [Mass/Vol] 10.2 mg/dL 7.6-11.0 [facility] Serum or plasma cholesterol in HDL measurement (mass/volume)Ordered By: Carmine Thomas on 10-20-2024 Cholesterol in HDL [Mass/Vol] 59 mg/dL >40 [facility] Comment on above: National Cholesterol Education Program (NCEP) guidelines:<40 mg/dL: Low HDL-cholesterol (major risk factor for CHD)>= 60 mg/dL: High HDL-cholesterol (negative risk factor for CHD)HDL-cholesterol is affected by a number of factors, e.g. smoking, exercise, hormones, sex and age. Serum or plasma cholesterol measurement (mass/volume)Ordered By: Carmine Thomas on 10-20-2024 Cholesterol [Mass/Vol] 205 mg/dL High <201 [facility] Comment on above: Cholesterol level, D esirable <200 mg/dLBorderline high cholesterol 200-239 mg/dLHigh cholesterol >=240 mg/dLRecommendations of the NCEP Adult Treatment Panel for the following risk-cutoff thresholds for the [place] population. Serum or plasma urea nitroge n measurement (mass/volume)Ordered By: Carmine Thomas on 10-20-2024 Urea nitrogen [Mass/Vol] 32 mg/dL High 4-19 [facility] Sodium levelOrdered By: Carmine Thomas on 10-20-2024 Sodium [Moles/Vol] 138 mmol/L 133-145 [facility] Total proteinOrdered By: Niyah Thomas on 10-20-2024 Protein [Mass/Vol] 7.1 g/dL 5.9-8.4 [facility] Triglycerides measurementOrd ered By: Carmine Thomas on 10-20-2024 Triglyceride [Mass/Vol] 208 mg/dL High <199 [facility] Comment on above: The drugs N-Acetylcy steine and Metamizole may falsely depress this assay. Normal range: <150 mg/dLBorderline High: 150-199 mg/dLHigh: 200-499 mg/dLVery High: >500 mg/dL Comprehensive Metabolic Prof ilon 04-19-2024 Albumin [Mass/Vol] 3.7 g/dL Normal 3.2-5.0 [facility] Comment on above: Performed By: #### L 501.9913, L500.7710, L500.2272 #### [facility] [place] [address], [address] Albumin/Globulin [Mass ratio] 1.1 {ratio} Normal 0.9-2.4 [facility] Comment on above: Performed By: #### L [id number], L500.4050, L500.4100 #### [facility] [address] [place], [address] ALK P 78 U/L Normal 45-117 [facility] Comment on above: Performed By: #### L [id number], L500.4050, L500.4100 #### [facility] [address] [place], [address] ALT [Catalytic activity/Vol] 24 U/L Normal 16-61 [facility] Comment on above: Performed By: #### L [id number], L500.4050, L500.4100 #### [facility] [address] [place], [address] AST [Catalytic activity/Vol] 14 U/L Low 15-37 [facility] Comment on above: Performed By: #### L [id number], L500.4050, L500.4100 #### [facility] [address] [place], [address] Bilirubin [Mass/Vol] 0.70 mg/dL Normal 0.20-1.00 [facility] Comment on above: Result Comment: For patients on eltrombopag therapy, use of Dimension [place] TBIL is not recommended. Performed By: #### L 501.9910, L500.4050, L500.4100 #### [facility] [address] [place], [address] BUN/CRE 20.9 RATIO High 10-20 [facility] Comment on above: Performed By: #### L 501.9910, L500.4050, L500.4100 #### [facility] [address] [place], [address] CA,Total 9.7 mg/dL Normal 8.5-10.1 [facility] Comment on above: Performed By: #### L 501.9910, L500.4050, L500.4100 #### [facility] [address] [place], [address] Chloride [Moles/Vol] 108 mmol/L High 98-107 [facility] Comment on above: Performed By: #### L 501.9910, L500.4050, L500.4100 #### [facility] [address] [place], [address] CO2 [Moles/Vol] 26.0 mmol/L Normal 21.0-32.0 [facility] Comment on above: Performed By: #### L [id number], L500.4050, L500.4100 #### [facility] [address] [place], [address] Creatinine [Mass/Vol] 1.29 mg/dL Normal 0.70-1.30 [facility] Comment on above: Result Comment: The validity of the calculated GFR GFRAA in patients over 70 years has not been determined. Clinical correlation is essential. Performed By: #### L 501.9910, L500.4050, L500.4100 #### [facility] [address] [place], [address] EST GFR - AA 69 mL/min Normal >60 [facility] Comment on above: Result Comment: Afri can [place] GFR Calc Performed By: #### L 501.9910, L500.4050, L500.4100 #### [facility] [address] [place], [address] GAP 5 Normal 5-15 [facility] Comment on above: Performed By: #### L 501.9910, L500.4050, L500.4100 #### [facility] [address] [place], [address] GFR/1.73 sq M.predicted among non-blacks MDRD (S/P/Bld) [Vol rate/Area] 57 mL/min/{1.73_m2} Low >60 [facility] Comment on above: Result Comment: Non- GFR Calc Performed By: #### L 501.9910, L500.4050, L500.4100 #### [facility] [address] [place], [address] Globulin (S) [Mass/Vol] 3.5 g/dL Normal 2.2-4.2 [facility] Comment on above: Performed By: #### L 501.9910, L500.4050, L500.4100 #### [facility] [address] [place], [address] Glucose [Mass/Vol] 94 mg/dL Normal 74-106 [facility] Comment on above: Performed By: #### L 501.9910, L500.4050, L500.4100 #### [facility] [address] [place], [address] Potassium [Moles/Vol] 4.3 mmol/L Normal 3.5-5.1 [facility] Comment on above: Performed By: #### L 501.9910, L500.4050, L500.4100 #### [facility] [address] [place], [address] Sodium [Moles/Vol] 139 mmol/L Normal 136-145 [facility] Comment on above: Performed By: #### L 501.9910, L500.4050, L500.4100 #### [facility] [address] [place], [address] T PROT 7.2 g/dL Normal 6.4-8.2 [facility] Comment on above: Performed By: #### L 501.9910, L500.4050, L500.4100 #### [facility] [address] [place], [address] Urea nitrogen [Mass/Vol] 27 mg/dL High 7-18 [facility] Comment on above: Performed By: #### L 501.9910, L500.4050, L500.4100 #### [facility] [address] [place], [address] Lipid Profileon 04-19-2024 Cholesterol [Mass/Vol] 197 mg/dL Normal 200 [facility] Comment on above: Result Comment: <200 mg/dL Desirable 200-240 mg/dL Borderline >240 mg/dL High Risk Performed By: #### L 501.9910, L500.4050, L500.4100 #### [facility] [address] [place], [address] Cholesterol in HDL [Mass/Vol] 56 mg/dL Normal [facility] Comment on above: Result Comment: The drugs N-Acetylcysteine and Metamizole may falsely depress this assay. Reference Range HDL <40 mg/dL Low HDL Cholesterol HDL >or= 60 mg/dL High HDL Cholesterol Performed By: #### L 501.9910, L500.4050, L500.4100 #### [facility] [address] [place], [address] Cholesterol in LDL [Mass/Vol] 101 mg/dL Normal 0-130 [facility] Comment on above: Performed By: #### L 501.9910, L500.4050, L500.4100 #### [facility] [address] [place], [address] Cholesterol in VLDL [Mass/Vol] 40 mg/dL Normal 5-40 [facility] Comment on above: Performed By: #### L 501.9910, L500.4050, L500.4100 #### [facility] [address] [place], [address] Triglyceride [Mass/Vol] 198 mg/dL Normal [facility] Comment on above: Result Comment: The drugs N-Acetylcysteine and Metamizole may falsely depress this assay. Serum Triglycerides Reference Interval Normal <150 mg/dL Borderline high 150 - 199 mg/dL High 200 - 499 mg/dL Very High > or = 500 mg/dL Performed By: #### L 501.9910, L500.4050, L500.4100 #### [facility] [address] [place], [address] PSA,Total - Annual Screenon 04-19-2024 PSA,TOT SCREEN 1.28 ng/mL Normal 0.00-4.00 [facility] Comment on above: Result Comment: This test was performed using the TPSA assay method for the [employer] chemistry system. Values obtained with different assay methods cannot be used interchangably. When changing PSA assays in the course of monitoring a patient, additional sequential testing should be carried out to confirm baseline values. Performed By: #### L 501.9910, L500.4050, L500.4100 #### [facility] [address] [place], [address] 12 Lead EKG performed by [facility] on 01-07-2024 12 Lead EKG performed by [facility] [address] [place] [address] 12 Lead EKG performed by [facility] 01/07/24 0922 MR#: [id number] Acct: [id number] Name: JUSTA LLAMAS Rep #: [id number] : 1945 78 From: Antonino Gonzales MD Attending Dr: Dr. Antonino Gonzales MD Status: DEP A MB Ordering Dr: Antonino Gonzales MD Date: 01/07/24 Location: [facility] Sex: M C Admitted: [facility]/12 Lead EKG performed by [facility] ECG Report Interpretation Sinus Bradycardia -Left atrial enlargement. -Poor R-wave progression -nonspecific -consider old anterior infarct. BORDERLINEElectronically signed on 2024 at 10:21 by Antonino Gonzales [employer] Version [id number] 01/08/24 1025 Date Antonino Gonzales MD CC: Dr. Carmine Thomas MD Date Dictated: 01/07/24921 Date Transcribed: 01/07/24921 Vascular Surgeon: CO Signed Normal [facility] Cardiology Visit Reporton Cardiology Visit Report [facility] [address] [place] [address] OFFICE VISIT Date of Service: 01/07/24 MR#: [id number] Acct: [id number] Name: JUSTA LLAMAS Rep #: [id number] : 1945 Provider: Dr. Antonino Gonzales MD Age/Sex: 78/M Location: [facility] Status: Signed HPI HPI History of Present Illness Details: Pleasant 78-year-old man who presents for reestablishment of care. He was last seen over 3 years ago and at that time was diagnosed with an aortic valve murmur as well as a patent foramen ovale. He says that he was in the office and the murmur appeared to be louder and he underwent an echocardiographic evaluation which demonstrated an ejection fraction of 60% trileaflet aortic valve with focal aortic valve calcification peak gradient of 25 mmHg and a mean gradient of 15 mmHg. He remains asymptomatic denying any chest pain or shortness of breath or paroxysmal nocturnal dyspnea pedal edema he has had no neck arm or jaw discomfort suggest angina. He has been compliant with his medications he remains very active. His physical exam is significant for clear lung conn regular rate and rhythm 3/6 systolic murmur noted left sternal border radiating to the carotids and his electrocardiogram demonstrates sinus bradycardia with a rate of 55 bpm. Intake Vital Signs 11/14/20 15:58 01/07/24 09:22 Height 5 ft 11 in 5 ft 11 in Weight: 175 lb 9 oz BMI 24.5 BP 133/66 H Blood Pressure Location Lt brachial Position Sitting Respiration 16 Pulse 58 L Pulse Source Monitor Intake Visit Reasons: RE-EST / MURMUR (VINCE) Relay Man Required: No Accompanied by: Is patient in pain?: No Allergies No Known Allergies Allergy (Verified 01/07/24 09:33) Medications ???Medication ???Instructions ???Recorded ???Confirmed ???Type allopurinol 100 mg tablet 200 mg PO DAILY 11/07/20 12/15/23 History lisinopril 20 1 tab PO DAILY 11/07/20 12/15/23 History mg-hydrochlorothiazide 12.5 mg tablet aspirin 81 mg tablet,delayed 81 mg PO QDAY #90 tabs 11/14/20 12/15/23 Rx release (Adult Low Dose Aspirin) Have you fallen in the past year?: No PFSH Medical History Guillain-Delavan Abnormal kidney function Hyperlipidemia Erectile dysfunction Murmur Intermittent palpitations Hypertriglyceridemia Gout Polyneuropathy Colon cancer Patent foramen ovale Nonrheumatic aortic (valve) stenosis Essential hypertension Surgical History Hx of appendectomy H/O laparoscopy History of colon resection (2011) Family History Mother Brain aneurysm, Onset Age: 49 Father Cancer, Onset Age: 56 prostate Social History Smoking Status: Never smoker alcohol intake: current alcohol intake frequency: holidays/special occasions only ROS Const Const: Negative for fatigue, weakness, headache(s), daytime sleepiness or difficulty sleeping ENT ENT: Negative for headache(s), dizziness or Nosebleed/epistaxis Cardio Chest Pain: No Palpitations: No Edema: None Resp Respiratory: Negative for SOB with activity, SOB at rest, SOB orthopnea SOB lying down or Cough GI GI: Negative nausea, vomiting or heartburn Neuro Neuro: Negative for dizziness, lightheadedness, near syncope, headache(s) or weakness Endo Endo: Negative for fatigue Cardiology Exam Const Appearance: cooperative, healthy appearing, no acute distress, well developed and well groomed Nutritional Appearance: average body habitus and well nourished Orientation: alert, awake and oriented x3 Head Head: normal to inspection, normocephalic and atraumatic Ears: hearing grossly normal bilaterally and external ears normal Nose: external nose normal, nares normal, nasal mucous membranes and turbinates normal, septum normal and no nasal discharge Face and Sinus: face symmetric Mouth: oral mucosae normal, tongue normal, oropharynx normal and moist mucous membranes Teeth and gingiva: dentition normal Throat: posterior oropharynx normal, tonsils normal and uvula midline Eyes General: appearance normal, both eyes and all related structures Eyelids: eyelids normal Conjunctivae: conjunctivae normal Pupils: PERRL, normal by confrontation and accommodation normal EOM: EOM intact bilaterally Neck Neck: normal visual inspection, trachea midline and no JVD JVD: +5 Carotids: normal carotid upstroke and bounding pulses Chest Chest inspection: normal inspection of the chest, symmetric chest movement and normal respiratory effort Auscultation: Bilateral: Clear to Auscultation Cardio Palpation: normal PMI Rate: regular rate Rhythm: (more content not included)... Normal [facility] Mohs surgeryon 06-20-2023 Consent obtained: agatha Garza Protocol: Procedure explained and questions answered to patient or proxy's satisfaction: Yes Test results available and properly labeled: Yes Pathology report reviewed: Yes External notes reviewed: Yes Photo or diagram used for site identification: Yes Site/side marked: Yes Slide independently reviewed by Mohs surgeon: Yes Immediately prior to procedure a time out was called: Yes Patient identity confirmed: verbally with patient Preparation: Patient was prepped and draped in usual sterile fashion Anticoagulation: Is the patient taking prescription anticoagulant and/or aspirin prescribed/recommended by a physician? Yes Was the anticoagulation regimen changed prior to Mohs? No Anesthesia: Anesthesia method: local infiltration Local anesthetic: lidocaine 1% WITH epi Procedure Details: Biopsy accession number: [id number] Date of biopsy: 03/20/2023 Pre-Op diagnosis: squamous cell carcinoma Surgery side: midline Surgical site (from skin exam): Mid Parietal Scalp Pre-operative length (cm): 0.6 Pre-operative width (cm): 0.6 Indications for Mohs surgery: anatomic location where tissue conservation is critical Previously treated? No Micrographic Surgery Details: Post-operative length (cm): 0.8 Post-operative width (cm): 0.7 Number of Mohs stages: 1 Stage 1 Comments: The patient was brought into the operating room and placed in the procedure chair in the appropriate position. The area positive by previous biopsy was identified and confirmed with the patient. The area of clinically obvious tumor was debulked using a curette and/or scalpel as needed. An incision was made following the Mohs approach through the skin. The specimen was taken to the lab, divided into 2 piece(s) and appropriately chromacoded and processed. Tumor features identified on Mohs section: no tumor identified Depth of defect: subcutaneous fat Patient tolerance of procedure: tolerated well, no immediate complications Reconstruction: Was the defect reconstructed?: No Fine/surface layer approximation (top stitches) Hemostasis achieved with: electrodesiccation Outcome: patient tolerated procedure well with no complications Post-procedure details: sterile dressing applied and wound care instructions given Dressing type: Gelfoam, Telfa pad, pressure dressing and Hypafix [facility] Work Phone: [facility] Work Phone: DERMPATH LAB- DERMATOPATHEDUARDO Fuller 03-20-2023 DERMPATH LAB- DERMATOPATHOLOGY Pathology report.total SEE COMMENT Dermatopathology Case: [id number] Authorizing Provider: Isabel Lou DO Collected: 03/20/2023 1324 Ordering Location: [place] Received: 03/20/2023 1611 Pathologist: Berta Cohen MD Specimens: A) - SKIN SHAVE BIOPSY, Mid Parietal Scalp B) - SKIN SHAVE BIOPSY, right upper back Path report.final diagnosis SEE COMMENT A. SKIN, MID PARIETAL SCALP, SHAVE BIOPSY: INVASIVE SQUAMOUS CELL CARCINOMA, MODERATELY DIFFERENTIATED, EXTENDING TO THE DEEP MARGIN IN THESE PLANES OF SECTION (SEE COMMENT): Comment: The invasive squamous cell carcinoma is superficially invasive and is arising in association with an actinic keratosis, the latter of which is present on the deep (via adnexa) and the peripheral margins. The tumor thickness is at least 0.5 mm. Neither perineural nor angiolymphatic invasion are identified in the portions of tissue available. B. SKIN, RIGHT UPPER BACK, SHAVE BIOPSY: CUTANEOUS ULCERATION WITH LYMPHOID INFILTRATE, (SEE COMMENT) Comment: The trisected shave biopsy transects a moderately dense periadnexal and perivascular lymphohistiocytic infiltrate. In one portion, there is a central ulceration with subepidermal fibrin and neutrophilic crust, suggesting outside trauma, such as excoriation. Special stains for AFB, PAS, and Brown and Brenn (all controls appropriate) are negative for pathogenic organisms. Given the density and distribution of the infiltrate, an immunohistochemical panel (all controls appropriate) was performed. The bulk of the infiltrate is positive for CD3 and CD4. CD8 highlights a lesser population of scattered small cells. CD30 is negative. CD20 highlights a moderate density of background B cells without a tendency to form germinal centers. BCL 6 highlights scattered positive cells. Bcl-2 appears to highlight predominantly T cells. PD-1 highlights small clusters of positive cells. The infiltrate is broadly transected through the superficial reticular dermis. The history of a solitary lesion is noted. The microscopic differential diagnosis includes findings as may be seen adjacent to a folliculitis, and remotely a drug eruption or chronic arthropod reaction could be considered, however eosinophils and plasma cells to favor the latter are not readily identified. The findings may also be seen at the surface of primary cutaneous CD4 positive small/medium T-cell lymphoproliferative disorder. If a clinical lesion or eruption of concern persists or recurs, then deeper re-biopsy may be helpful at that time. Electronically signed out by BERTA COHEN MD Laboratory comment By the signature on this report, the individual or group listed as making the Final Interpretation/Diagnosis certifies that they have reviewed this case. Path report.relevant Hx A. 3 mm erythematous papule. SCC. B. Cowan, 5 mm nodule. Differential diagnosis: Acne cyst versus BCC versus Nory cell. Path report.microscopic observation Microscopic examination performed. LAB AP ASR DISCLAIMER One or more of the reagents used to perform assays on this specimen MAY have contained components considered to be analyte specific reagents (ASR's). ASR's have not been cleared or approved by the U.S. Food and Drug Administration. These assays were developed and their performance characteristics determined by the Department of Pathology at [facility]. The FDA does not require this test to go through premarket FDA review. This test is used for clinical purposes. It should not be regarded as investigational or for research. This laboratory is certified under the Clinical Laboratory Improvement Amendments (CLIA) as qualified to perform high complexity clinical laboratory testing. The assays were performed with appropriate positive and negative controls which stained appropriately. Path report.gross observation SEE COMMENT A: Received in formalin is a hamilton-brown shave biopsy of skin measuring 4 x 3 x 1 mm. Inked and embedded in toto. B: Received in formalin is a hamilton-brown shave biopsy of skin measuring 8 x 7 x 1 mm. Inked and embedded in toto. [facility] Ambulatory Lesion biopsyon 03-20-2023 Type of biopsy: bishop ential Informed consent: discussed and consent obtained Timeout: patient name, date of , surgical site, and procedure verified Procedure prep: Patient was prepped and draped Anesthesia: the lesion was anesthetized in a standard fashion Anesthetic: 1% lidocaine w/ epinephrine 1-100,000 local infiltration Instrument used: DermaBlade Hemostasis achieved with: aluminum chloride Outcome: patient tolerated procedure well Post-procedure details: sterile dressing applied and wound care instructions given Dressing type: petrolatum and bandage [facility] Work Phone: [facility] Work Phone: Type of biopsy: bishop ential Informed consent: discussed and consent obtained Timeout: patient name, date of , surgical site, and procedure verified Procedure prep: Patient was prepped and draped Anesthesia: the lesion was anesthetized in a standard fashion Anesthetic: 1% lidocaine w/ epinephrine 1-100,000 local infiltration Instrument used: DermaBlade Hemostasis achieved with: aluminum chloride Outcome: patient tolerated procedure well Post-procedure details: sterile dressing applied and wound care instructions given Dressing type: petrolatum and bandage [facility] Work Phone: [facility] Work Phone: Vital Signs Date Time Vital Sign Value Performing Clinician Elvia arrieta 06-28-2016 08:40-0500 Diastolic blood pressure 74 mm[Hg] Antonio Escalante [facility] of D[facility]atology 06-28-2016 08:40-0500 Systolic blood pressure 139 mm[Hg] Antonio Escalante [facility] Encounters Encounter Date Encounter Type Care Provider Facility Start: 01-04-2025 ambulatory Carmine Thomas Facility:[facility] Start: 10-20-2024 End: 10-20-[address] Carmine Thomas MD Work Phone: [facility] Work Phone: Start: 10-20-2024 End: 10-20-[address] Carmine Thomas MD -Laboratory [facility] Start: 10-20-2024 End: 10-20-2024 ambulatory Carmine Thomas Facility:[facility] Start: 04-19-2024 End: 04-19-2024 ambulatory Carmine Thomas Facility:[facility] Start: 01-07-2024 End: 01-07-2024 ambulatory Carmine Thomas Facility:[facility] Start: 06-20-2023 End: 06-20-2023 ambulatory [facility] Ambulatory Start: 06-20-2023 End: 06-20-2023 Office outpatient visit 25 minutes Tracey Lee MD Work Phone: [place] Comment on above: Squamous cell carcin rigoberto of skin of scalp and neck Start: 03-20-2023 End: 03-20-2023 [facility] Start: 03-20-2023 End: 03-20-2023 Office outpatient visit 25 minutes [facility] Work Phone: [place] Comment on above: Actinic keratosis (P rimary Dx); Neoplasm of uncertain behavior of skin; Photoaging of skin; Seborrheic keratosis; Personal history of malignant melanoma of skin; Hemangioma of skin; Skin tag Start: 05-09-2021 Office outpatient vi sit 15 minutes Antonio Escalante Dept[facility] of Dermatology Start: 05-13-2018 Patient encounter procedure ANTONIO ESCALANTE Facility:[id number] Start: 05-13-2018 Office outpatient vi sit 15 minutes Antonio Escalante [facility] Start: 07-05-2016 Office outpatient vi sit 10 minutes Antonio Escalante [facility] Start: 07-05-2016 Office outpatient vi sit 15 minutes Antonio Escalante [facility] Start: 11-07-2016 Office outpatient ne w 20 minutes Antonio Escalante [facility] Start: 04-15-2016 Office outpatient vi sit 15 minutes Antonio Escalante [facility] Procedures Date Procedure Procedure Detail Performing Clinician Start: 06-20-2023 PEDRO NURSING COMMUNIC ATION - LIDOCAINE INJ ISABEL LOU Start: 06-20-2023 MOHS SURGERY ISABEL COREA Start: 06-20-2023 MOHS SURGERY Tracey Lee MD Work Phone: Start: 03-20-2023 PEDRO NURSING COMMUNIC ATION - LIDOCAINE INJ ISABEL LOU Start: 03-20-2023 DERMPATH LAB- DERMATOPATHOLOGY ISABEL LOU Start: 03-20-2023 SKIN / NAIL BIOPSY PAPI LOU Start: 03-20-2023 End: 03-20-2023 SKIN / NAIL BIOPSY Isabel Lou DO Work Phone: Start: 05-13-2018 Destruction premalig nant lesion 1st Antonio Escalante Start: 05-13-2018 New Office Visit Level 3 Antonio Escalante Start: 06-28-2016 Established Office V isit Level 3 Antonio Escalante Start: 06-28-2016 Mohs micrographic h/ n/h/f/g 1st stage 5 blocks Antonio Escalante Start: 04-15-2016 Biopsy each addition al lesion. Antonio Escalante Start: 04-15-2016 Destruction premalig nant lesion 1st Antonio Escalante Plan of Treatment Date Care Activity Detail Author Start: 02-07-2023 Influenza vaccination Influenza Vacc ine (#1) [facility] Start: 05-02-2022 COVID-19 Vaccine (4 - Moderna risk series) COVID-19 Vaccine (4 - Moderna risk series) [facility] Start: 05-02-2022 COVID-19 Vaccine (4 - Moderna series) COVID-19 Vaccine (4 - Moderna series) [facility] Start: 2011 Pneumococcal Vaccine : 65+ Years (1 - PCV) Pneumococcal Vaccine: 65+ Years (1 - PCV) [facility] Start: 01-09-1996 Zoster Vaccines (1 o f 2) Zoster Vaccines (1 of 2) [facility] Start: 01-09-1968 DTaP/Tdap/Td Vaccine s (1 - Tdap) DTaP/Tdap/Td Vaccines (1 - Tdap) [facility] Start: 01-09-1964 Hepatitis C screening Hepatitis C Sc reening [facility] Start: 1945 Examination of skin Derm Melan rigoberto Skin Check [facility] Start: 1945 Lipid panel Lipid Panel [facility] Start: 1945 Medicare Annual Wellness Visit Medicare Annual Wellness Visit (AWV) [facility] Dermatopathology- DE RM LAB Dermatopathology- DERM LAB Pathology and Cytology Timed Neoplasm of uncertain behavior of skin Release Upon Ordering for 1 Occurrences starting 03/20/2023 [facility] Service Area Work Phone: Comment on above: Release Upon Orderin g for 1 Occurrences starting 03/20/2023 Immunizations Immunization Date Immunization Notes Care Provider Fa cility 03-07-2022 Moderna COVID-19 vaccine, bivalent, blue cap/miller label *Check age/dose* Isabel Lou DO Work Phone: [facility] Work Phone: 1945 pneumococcal conjuga te vaccine, 7 valent Antonio Escalante Dept. of Dermatology Payers Date Payer Category Payer Self-pay 2022 Unknown AARP AARP [id number] 2022-Present [address] [place] [address] [id number] 2022 Unknown [id number] 2020 Medicare MEDICARE MEDICAR E PART A AND B [id number] 2020-Present [address] [place] [address] [id number] 2020 Medicare [id number] 1945 Unknown [id number] 1945 Unknown [id number] 1945 Unknown [id number] Self-pay 0 Self-pay SELF PAY INSURANCE [id number] Unknown HOOD [id number] Unknown [id number] Unknown [id number] Unknown [id number] Unknown [id number] Social History Date Type Detail Facility Start: 05-09-2021 Dept. of D ermatology Start: 1945 Sex Assigned At Male W [facility] Start: 03-20-2023 End: 12-15-2023 Tobacco smoking status NHIS Never smoked tobacco [facility] Start: 03-20-2023 Tobacco use and exposure Smokeless tobacco non-user [facility] Work Phone: Start: 03-20-2023 Alcohol intake Lifetime non-d mumtaz (finding) [facility] Work Phone: Start: 1945 Sex Assigned At Not on file [facility] Work Phone: Start: 03-20-2023 Gender identity Not on file [facility] Work Phone: Start: 03-10-2023 End: 06-20-2023 Exposure to SARS-CoV-2 (event) Not sure [facility] Start: 03-20-2023 History of Social function [facility] Work Phone: Goals Date Patient Goal Desired Activity /State History of Present illness Narrative 06-20-2023 Tracey Lee MD - 06/20/2023 10:30 AM ESTChjose e Lee MD - 06/20/2023 10:30 AM EST Note Date & Type Note Facility 06-20-2023 History of Present illness Narrative Office Visit Note Date: 06/20/2023 Surgeon: Tracey Lee MD Office Location: [address] [facility] [address] [facility] [address] Dept: [phone] Dept Referring Provider: Isabel Lou, DO [address] [place] [address] Subjective Justa Llamas is a 78 y.o. male who presents for the following: MOHS Surgery (Mid Parietal Scalp- SCC) According to the patient, the lesion has been present for approximately 1 month at the time of diagnosis. The lesion is not causing symptoms. The lesion has not been treated previously. The patient does not have a pacemaker / defibrillator. The patient does not have a heart valve / joint replacement. The patient is on blood thinners. The patient does not have a history of hepatitis B or C. The patient does not have a history of HIV. The patient does not have a history of immunosuppression (e.g. organ transplantation, malignancy, medications) Review of Systems: No other skin or systemic complaints other than what is documented elsewhere in the note. MEDICAL HISTORY: clinically relevant history including significant past medical history, medications and allergies was reviewed and documented in Epic. Objective Well appearing patient in no apparent distress; mood and affect are within normal limits. Vital signs: See record. Noted on the Mid Parietal Scalp Is a 0.6 x 0.6 cm scar The patient confirmed the identified site. Discussion: The nature of the diagnosis was explained. The lesion is a skin cancer. It has a risk of local growth and distant spread. The condition is associated with sun exposure. Warning signs of non-melanoma skin cancer discussed. Patient was instructed to perform monthly self skin examination. We recommended that the patient have regular full skin exams given an increased risk of subsequent skin cancers. The patient was instructed to use sun protective behaviors including use of broad spectrum sunscreens and sun protective clothing to reduce risk of skin cancers. Risks, benefits, side effects of Mohs surgery were discussed with patient and the patient voiced understanding. It was explained that even though the cure rate of Mohs is very high it is not 100%. Risks of surgery including but not limited to bleeding, infection, numbness, nerve damage, and scar were reviewed. Discussion included wound care requirements, activity restrictions, likely scar outcome and time to heal. After Mohs surgery, the defect may need to be repaired surgically and the scar may be longer than the original lesion. Reconstruction options, risks, and benefits were reviewed including second intention healing, linear repair (4-1 ratio was explained), local flaps, skin grafts, cartilage grafts and interpolation flaps (the need for multiple surgeries was explained). Possible outcomes were reviewed including likely scar appearance, failure of flap survival, infection, bleeding and the need for revision surgery. The pathology was reviewed, the photograph was reviewed, and the referring physician's note was reviewed. Patient elected for Mohs surgery. Images from the original note were not included. Mohs Surgery Operative Note Date of Surgery: 06/20/2023 Surgeon: Tracey Lee MD Office Location: [address] [address] Dept: [phone] Dept Referring Provider: Isabel Lou [address] [facility] [address], [facility] [address] [place] [address] Assessment/Plan Pre-procedure: Obtained informed consent: written from patient The surgical site was identified and confirmed with the patient. Intra-operative: Audible time out called at : 10:52 AM 06/20/23 by: Krystle Jimenez RN Verified patient name, birthdate, site, specimen bottle label & requisition. The planned procedure(s) was again reviewed with the patient. The risks of bleeding, infection, nerve damage and scarring were reviewed. Written authorization was obtained. The patient identity, surgical site, and planned procedure(s) were verified. 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 Scalp Mohs surgery Consent obtained: written [place] Protocol: Procedure explained and questions answered to patient or proxy's satisfaction: Yes Test results available and properly labeled: Yes Pathology report reviewed: Yes External notes reviewed: Yes Photo or diagram used for site identification: Yes Site/side marked: Yes Slide independently reviewed by Mohs surgeon: Yes Immediately prior to procedure a time out was called: Yes Patient identity confirmed: verbally with patient Preparation: Patient was prepped and draped in usual sterile fashion Anticoagulation: Is the patient taking prescription anticoagulant and/or aspirin prescribed/recommended by a physician? Yes Was the anticoagulation regimen changed prior to Mohs? No Anesthesia: Anesthesia method: local infiltration Local anesthetic: lidocaine 2% WITH epi Procedure Details: Biopsy accession number: [id number] Date of biopsy: 03/20/2023 Pre-Op diagnosis: squamous cell carcinoma Surgery side: midline Surgical site (from skin exam): Mid Parietal Scalp Pre-operative length (cm): 0.6 Pre-operative width (cm): 0.6 Indications for Mohs surgery: anatomic location where tissue conservation is critical Previously treated? No Micrographic Surgery Details: Post-operative length (cm): 0.8 Post-operative width (cm): 0.7 Number of Mohs stages: 1 Stage 1 Comments: The patient was brought into the operating room and placed in the procedure chair in the appropriate position. The area positive by previous biopsy was identified and confirmed with the patient. The area of clinically obvious tumor was debulked using a curette and/or scalpel as needed. An incision was made following the Mohs approach through the skin. The specimen was taken to the lab, divided into 2 piece(s) and appropriately chromacoded and processed. Tumor features identified on Mohs section: no tumor identified epth of defect: subcutaneous fat Patient tolerance of procedure: tolerated well, no immediate complications Reconstruction: Was the defect reconstructed?: No Fine/surface layer approximation (top stitches) Hemostasis achieved with: electrodesiccation Outcome: patient tolerated procedure well with no complications Post-procedure details: sterile dressing applied and wound care instructions given Dressing type: Gelfoam, Telfa pad, pressure dressing and Hypafix Repair: After a discussion with the patient regarding the options for wound closure, a decision was made to proceed with second intention healing. Dressing F/U: Surgifoam was placed in the wound. A pressure dressing was placed to help stabilize the wound and to minimize the risk of postoperative bleeding. Wound care was discussed, and the patient was given written post-operative wound care instructions. The final repair measured 0.8 x 0.7 cm Wound care was discussed, and the patient was given written post-operative wound care instructions. The patient will follow up with Tracey Lee MD as needed for any post operative problems or concerns, and will follow up with their primary sewer and cutter finger buff material as scheduled. documented in this encounter [facility] Work Phone: History of Present illness Narrative 03-20-2023 Isabel Reny DO Carmine - 03/20/2023 1:10 PM EDT Note Date & Type Note Facility 03-20-2023 History of Present illness Narrative Images from the original note were not included. Subjective Justa Llamas is a 78 y.o. male who presents for the following: Skin Check (Pt here today for upper body skin exam. 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 Has irritated lesion on neck.). Review of Systems: No other skin or systemic complaints other than what is documented elsewhere in the note. The following portions of the chart were reviewed this encounter and updated as appropriate: Skin Cancer History No skin cancer on file. Specialty Problems Dermatology Problems Actinic keratosis Hemangioma of skin and subcutaneous tissue Melanocytic nevi of left lower limb, including hip Melanocytic nevi of left upper limb, including shoulder Melanocytic nevi of other parts of face Melanocytic nevi of right lower limb, including hip Melanocytic nevi of right upper limb, including shoulder Melanocytic nevi of trunk Neoplasm of uncertain behavior of skin Other melanin hyperpigmentation Other seborrheic keratosis Personal history of malignant melanoma of skin Scar condition and fibrosis of skin Squamous cell carcinoma of skin of nose Objective Well appearing patient in no apparent distress; mood and affect are within normal limits. A full examination was performed including scalp, face, eyes, ears, nose, lips, neck, chest, axillae, abdomen, back, bilateral upper extremities, hands, fingers. All findings within normal limits unless otherwise noted below. Assessment/Plan 1. Actinic keratosis Mid Parietal Scalp Erythematous macules with gritty scale. Lesions are due to cumulative sun damage over time and are pre-cancerous. They have a risk (although small in majority of patients) of developing into squamous cell carcinoma and therefore treatment recommendations were offered and discussed. Treatments Discussed include LN2, photodynamic (blue light) therapy & topical chemotherapy creams, risks and benefits of each. Side effects of 5-FU (fluorouracil) are expected and include redness, crusting, blistering, oozing, pain and irritation with application. To alleviate side effects can Vaseline or cool compresses to the skin to alleviate side effects. Apply 5FU 2x daily x 2wks to Scalp, right zoroastrian. Pt already had 5FU rx from years ago. After 2 weeks of 5FU, stop 5FU and begin to apply triamcinolone 0.025% cream 2x daily x 1-2 weeks to alleviate effects of redness, pain, irritation that occurs after 5FU therapy. triamcinolone (Kenalog) 0.025 % cream - Mid Parietal Scalp Apply to scalp after 2 week fluorouracil treatment 2x daily x 2wks 2. Neoplasm of uncertain behavior of skin (2) Mid Parietal Scalp 3mm erythematous papule Lesion biopsy Type of biopsy: tangential Informed consent: discussed and consent obtained Timeout: patient name, date of , surgical site, and procedure verified Procedure prep: Patient was prepped and draped Anesthesia: the lesion was anesthetized in a standard fashion Anesthetic: 1% lidocaine w/ epinephrine 1-100,000 local infiltration Instrument used: DermaBlade Hemostasis achieved with: aluminum chloride Outcome: patient tolerated procedure well Post-procedure details: sterile dressing applied and wound care instructions given Dressing type: petrolatum and bandage Staff Communication: Dermatology Local Anesthesia: 1 % Lidocaine / Epinephrine - Amount: 0.5cc Specimen 1 - Dermatopathology- DERM LAB Differential Diagnosis: scc Check Margins Yes/No?: Comments: Dermpath Lab: Routine Histopathology (formalin-fixed tissue) right upper back Cowan 5mm nodule Lesion biopsy Type of biopsy: tangential Informed consent: discussed and consent obtained Timeout: patient name, date of , surgical site, and procedure verified Procedure prep: Patient was prepped and draped Anesthesia: the lesion was anesthetized in a standard fashion Anesthetic: 1% lidocaine w/ epinephrine 1-100,000 local infiltration Instrument used: DermaBlade Hemostasis achieved with: aluminum chloride Outcome: patient tolerated procedure well Post-procedure details: sterile dressing applied and wound care instructions given Dressing type: petrolatum and bandage Staff Communication: Dermatology Local Anesthesia: 1 % Lidocaine / Epinephrine - Amount: 0.5cc Specimen 2 - Dermatopathology- DERM LAB Differential Diagnosis: acne cyst vs bcc vs nory kayla Check Margins Yes/No?: Comments: Dermpath Lab: Routine Histopathology (formalin-fixed tissue) Lesion concerning for SCC. The need for biopsy for definitive diagnosis recommended. Risks and benefits reviewed, see procedure note. 3. Photoaging of skin Scalp, trunk, extremities Mottled pigmentation with telangiectasias and brown reticular macules in sun exposed areas of the body. The risk of chronic, cumulative sun damage and risk of development of skin cancer was reviewed today. The importance of sun protection was reviewed: including the use of a broad spectrum sunscreen that protects against both UVA/UVB rays, with ingredients such as Zinc oxide or titanium dioxide, wearing sun protective clothing and sun avoidance. We reviewed the warning signs of non-melanoma skin cancer and ABCDEs of melanoma Please follow up should you notice any new or changing pre-existing skin lesion. 4. Seborrheic keratosis (3) Chest - Medial (Center), Head - Anterior (Face), Mid Back Brown, hamilton waxy macules and stuck on appearing papules and plaques The benign nature of these skin lesions reviewed, reassure provided and no further treatment needed at this time. These lesions can be removed, if symptomatic (itching, bleeding, rubbing on clothing, painful), otherwise removal is considered cosmetic. 5. Personal history of malignant melanoma of skin Right Forearm - Posterior Well healed scar at site of prior treatment without evidence of recurrence. There is no evidence of recurrence or repigmentation on clinical examination today, reassure was provided to the patient. The importance of sun protection was reviewed with the patient including the use of a broad spectrum sunscreen that protects against both UVA/UVB rays, with ingredients such as Zinc oxide or titanium dioxide, wearing sun protective clothing and sun avoidance. ABCDEs of melanoma reviewed. Patient to f/u should they notice any new or changing pre-existing skin lesion. 6. Hemangioma of skin Trunk Hanna red papules The benign nature of these skin lesions were reviewed, no treatment is necessary. Please follow up for any new or pre-existing lesion that is changing in size, shape, color, becomes painful, tender, itches or bleed. 7. Skin tag Right Anterior Neck Fleshy, skin-colored sessile and pedunculated papules. Benign growths that most commonly occur in areas of friction and rubbing, specifically the neck, axilla, and inguinal creases. No treatment is necessary. If lesions are symptomatic, they can be removed, however regardless of symptoms some insurances may not cover this procedure. Removed with scissors after local anesthesia with 1% lidocaine with epinephrine was achieved as courtesy. 1 lesion removed. Follow up pending biopsy results. documented in this encounter [facility] Work Phone: Evaluation note Note Date & Type Note Facility Evaluation note N/A Dept. of Dermato logy Evaluation note Note Date & Type Note Facility Evaluation note Diagnosis Actinic keratosis- Primary Neoplasm of uncertain behavior of skin Photoaging of skin Other chronic dermatitis due to solar radiation Seborrheic keratosis Personal history of malignant melanoma of skin Hemangioma of skin Hemangioma of skin and subcutaneous tissue Skin tag Unspecified hypertrophic and atrophic condition of skin documented in this encounter [facility] Work Phone: Evaluation note Note Date & Type Note Facility Evaluation note Diagnosis Squamous cell carcinoma of skin of scalp and neck documented in this encounter [facility] Work Phone: Evaluation note Note Date & Type Note Facility Evaluation note No assessment information availa ble [facility] Work Phone: Reason for referral (narrative) Note Date & Type Note Facility Reason for referral (narrati ve) NA NA Dept. of Dermatology Reason for referral (narrative) Note Date & Type Note Facility Reason for referral (narrative) No reason for referral information available [facility] Work Phone: Summary Purpose Family History No Family History Records Found Relationship Condition Age at Onset Recorded Date/T ayah mother Cerebral aneurysm 49 father Malignant neoplasm 56 Advance Directives No Advanced Directives Records FoundNo Advanced Directives Records FoundNo Advanced Directives Records Found Additional Source Comments (unrecognized sect ion and content) No Status Records FoundNo Status Records FoundNo Status Records Found INFORMATION SOURCE (unrecogn ized section and content) DATE CREATED AUTHOR 07/04/2018 [facility] DATE CREATED AUTHOR AUTHOR'S ORGANIZ ATION 06/22/2023 [facility] DATE CREATED AUTHOR AUTHOR'S ORGANIZ ATION 01/01/2025 [facility] Reason for Visit (unrecogniz ed section and content) Reason Comments Skin Check Pt here today for up per body skin exam. 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 Has irritated lesion on neck. Reason Comments MOHS Surgery Mid Parietal Scalp- SCC Specialty Diagnoses / Procedures Referred By Gricelda restrepo Referred To Contact Dermatology Diagnoses Squamous cell carcinoma of skin of scalp and neck Isabel Lou, DO [address] [facility] [address] [place] [address] Referral ID Status Reason Start Date Expiration Date Visits Requested Visits Authorized [id number] Authorized Specialty Services Required 3 04/03/2024 1 1 Care Teams (unrecognized sec tion and content) Instrumentation Technician Relationship Specialty Start Date End Date Carmine Thomas MD [address] [facility] [address] [place] [address] PCP - General 04/09/21 Instrumentation Technician Relationship Specialty Start Date End Date Carmine Thomas MD PCP - General 04/09/21 Team Status: Active Member Role Status Dates Dr. Ron Choi MD Family Provider Active Dr. Carmine Thomas MD Primary Care Provider Active Team Status: Inactive Member Role Status Dates Dr. Carmine Thomas MD Primary Care Provider Active Start: October 20, 2024 End: October 20, 2024 Dr. Carmine Thomas MD Attending Provider Active Start: October 20, 2024 End: October 20, 2024 Dr. Carmine Thomas MD Referring Provider Active Start: October 20, 2024 End: October 20, 2024 Goals (unrecognized section and content) Goals may be documented in a n alternate section FOR RECORDS PERTAINING TO PATIENTS WHO ARE OR HAVE BEEN ENROLLED IN A CHEMICAL DEPENDENCY/SUBSTANCEABUSE PROGRAM, SOME INFORMATION MAY BE OMITTED. This clinical summary was aggregated from multiple sources. Caution should be exercised in using it in the provision of clinical care. This summary normalizes information from multiple sources, and as a consequence, information in this document may materially change the coding, format and clinical context of patient data. In addition, data may be omitted in some cases. CLINICAL DECISIONS SHOULD BE BASED ON THE PRIMARY CLINICAL RECORDS. [employer] [facility] provides no warranty or guarantee of the accuracy or completeness of information in this document.
[2025-04-27 11:10] LABS: AST(SGOT) 27 U/L (<=37); Alanine Aminotransfer ALT/SGPT 23 U/L (<=46); Albumin, Serum 4.0 g/dL (3.4-4.8); Alkaline Phosphatase 74 U/L (40-129); Anion Gap 9 (5-15); BUN 31 mg/dL (4-19); BUN/Creat Ratio 20.9 RATIO (10-20); Calcium,Total 10.0 mg/dL (7.6-11.0); Carbon Dioxide 25.4 mmol/L (21.0-32.0); Chloride 103 mmol/L (98-108); Cholesterol 182 mg/dL (<=200); Globulin 3.0 g/dL (2.2-4.2); Glucose 92 mg/dL (70-99); Low Density Lipoprotein Calc. 103 mg/dL; PSA,Total - Annual Screen 1.13 ng/mL (0.02-4.00); Potassium 3.8 mmol/L (3.3-5.1); Triglycerides 176 mg/dL; Very Low Density Lipoprotein 35 mg/dL (5-40); cholesterol:hdl ratio screen 3.74
== END | disposition home or self-care (01) ==
LOC: MFPLAB 08:22
PROVIDERS: PCP Family Medicine; Visit Provider Family Medicine
DX: Z12.5 Encounter for screening for malignant neoplasm of prostate (principal); I10 Essential (primary) hypertension
CPT/HCPCS: 36415; 80053; 80061; 84153; G0103